=== PATIENT | female | born 1995 | race Caucasian/White ===

== ENCOUNTER 2016-05-07 16:55 | Emergency (ER) | payer BC ==
[~2016-05-07] VITALS: Ht 165.1 cm; Wt 46.0 kg
[2016-05-07 17:02] VITALS: Ht 165.1 cm; Wt 46.0 kg
[2016-05-07] MEDS ORDERED: HYDROCODONE/APAP (5/325) TAB PO ONE (22:30)
--- NOTE | 2016-05-07 22:36 | RADRPT ---
PROCEDURE: Left knee radiographs. CLINICAL INDICATION: Left knee pain. TECHNIQUE: Three views. Weight bearing. Frontal, lateral, and oblique. COMPARISON: No prior studies are available for comparison. FINDINGS: There is no fracture or dislocation. The soft tissues are normal. Articular surfaces are intact. There is no lytic or blastic lesion. There is no radiopaque foreign body. IMPRESSION: 1. Normal images of the left knee. RPTAT: QQ .Ino Garber MD, MD Date Time Electronically viewed and signed by .Ion Garber MD, on 05/07/2016 22:36 .R/
[2016-05-07] MEDS ORDERED: IBUP-1542 PO (22:40)
--- NOTE | 2016-05-07 22:47 | ERD ---
ER Documentation Chief Complaint Date/Time DATE: 05/07/16 TIME: 22:41 Chief Complaint LEFT KNEE PAIN X 4DAYS HPI Patient is a 21-year-old female who presents to the emergency department with left knee pain 4 days. Patient denies any trauma or falls. Patient states the pain is primarily in the anterior region of her knee. She describes the pain to be constant, 8 out of 10. Patient has pain when ambulating, states that it is difficult for her to walk more than 4 steps. Patient denies any swelling or erythema. Patient denies any previous injuries to the affected extremity. Patient denies any fever or chills. ROS All systems reviewed and are negative except as per history of present illness. Medications Home Meds Active Scripts Ibuprofen* (Motrin*) 600 Mg Tab, 600 MG PO Q6, #30 TAB Prov:JEWEL ALEXANDER PA-C 05/07/16 Allergies Allergies: Coded Allergies: No Known Allergy (Unverified , 05/07/16) PMhx/Soc Medical and Surgical Hx: pt denies Medical Hx, pt denies Surgical Hx History of Surgery: No Anesthesia Reaction: No Hx Neurological Disorder: No Hx Respiratory Disorders: No Hx Cardiac Disorders: No Hx Psychiatric Problems: No Hx Miscellaneous Medical Probl: No Hx Alcohol Use: No Hx Substance Use: No Hx Tobacco Use: No Smoking Status: Never smoker FmHx Family History: No diabetes Physical Exam Vitals Vital Signs Date Time Temp Pulse Resp B/P Pulse Ox O2 Delivery O2 Flow Rate FiO2 05/07/16 23:21 98.8 68 20 100 Room Air 05/07/16 17:02 99.0 113 18 118/72 98 Physical Exam GENERAL: Well-developed, well-nourished female. Appears in no acute distress. HEAD: Normocephalic, atraumatic. EYES: Pupils are equally reactive bilaterally. EOMs grossly intact. No conjunctival erythema. ENT: Moist mucous membranes. No uvula deviation. No kissing tonsils. NECK: Supple. No lymphadenopathy or thyromegaly. No meningismus. LUNG: Clear to auscultation bilaterally. No rhonchi, wheezing, rales or coarse breath sounds. HEART: Regular rate and rhythm. No murmurs, rubs or gallops. BACK: No midline tenderness. EXTREMITIES: Equal pulses bilaterally. No peripheral clubbing, cyanosis or edema. No unilateral leg swelling. NEUROLOGIC: Alert and oriented. Moving all four extremities without any difficulty. Normal speech. Steady gait. SKIN: Normal color. Warm and dry. No rashes or lesions. LEFT KNEE: No deformity, erythema, ecchymosis or swelling. Skin intact. Decreased range of motion secondary to pain. No crepitus. Tender to palpation to anterior and lateral aspect of knee. (-) Anterior drawer test. (-) Regulo test. No valgus/varus instability. Sensation intact to light touch. Neurovascularly intact. (Able to plantarflex, dorsiflex, jennifer foot, invert foot , raise big toe.) 2+ DP and DT pulses. Results 24 hrs Current Medications Medications (Trade) Dose Ordered Sig/Gilmer Route PRN Reason Start Time Stop Time Status Last Admin Dose Admin Acetaminophen/ Hydrocodone Bitart ([place] (5/325)) 1 tab ONCE ONCE PO 05/07/16 22:30 05/07/16 22:31 DC 05/07/16 22:17 Procedures/MDM ED COURSE: The patient was stable throughout ED course. I kept the patient and/or family informed of laboratory and diagnostic imaging results throughout the ED course. DIAGNOSTIC IMAGING: Read by radiologist. DIAGNOSTIC IMAGING REPORT Patient: JENNIFER LOAIZA : 1995 Age: 21 Sex: F MR #: [id number] DOS: 05/07/162203 Ordering MD: JEWEL ALEXANDER PA-C Location: [facility] Room/Bed: PROCEDURE: Left knee radiographs. CLINICAL INDICATION: Left knee pain. TECHNIQUE: Three views. Weight bearing. Frontal, lateral, and oblique. COMPARISON: No prior studies are available for comparison. FINDINGS: There is no fracture or dislocation. The soft tissues are normal. Articular surfaces are intact. There is no lytic or blastic lesion. There is no radiopaque foreign body. IMPRESSION: 1. Normal images of the left knee. RPTAT: QQ .Ino Garber MD, MD Date Time Electronically viewed and signed by .Ino Garber MD, MD on 05/07/2016 22:36 .R/ CC: JEWEL ALEXANDER PA-C SPLINT APPLICATION: The patient was verbally consented at bedside prior to splint application. Patient was explained the risks, benefits and alternatives to this procedure. The patient was neurovascularly intact prior to and status post application of the splint. The patient tolerated the procedure well with no complications. Splint type: knee immobilizer Extremity: LLE Indication: left knee sprain MEDICATIONS GIVEN: [place] Patient tolerated medication well with no adverse reactions. Patient reported improvement in pain. MEDICAL DECISION MAKING: This is a 21-year-old female who presents with left knee pain 4 days. Vital signs were reviewed. Patient was afebrile. Knee xrays showed Normal images of the left knee. She was given [place] for pain. Patient reported improvement in pain. Patient was given a knee immobilizer for comfort. Patient was neurovascularly intact pre and post-splint application. Given these findings, the patients presentation is most consistent with knee sprain. I have a much lower clinical concern for femur fracture, patella fracture, tibial plateau fracture, patella dislocation, septic joint, gout, popliteal cyst, prepatellar bursitis, patellofemoral syndrome, patellar tendinitis, osteomyelitis, DVT or compartment syndrome. At this time, unable to rule out any meniscus and knee ligament injuries. PRESCRIPTIONS: Ibuprofen DISCHARGE: At this time, patient is stable for discharge and outpatient management. RICE therapy and ROM exercises were advised to avoid stiffness. I have instructed the patient to follow-up with his/her primary care physician in 1-2 days. I have discussed with the patient the possibility of needing to see an family support specialist for further workup and imaging if the pain persists. I have instructed the patient to promptly return to the ER for any new or worsening symptoms including increased pain, swelling, redness, warmth or fever. The patient and/or family expressed understanding of and agreement with this plan. All questions were answered. Home care instructions were provided. Departure Diagnosis: Primary Impression: Knee pain Laterality: left Chronicity: acute Qualified Code: M25.562 - Acute pain of left knee Condition: Stable Patient Instructions: Knee Pain, Uncertain Cause Referrals: KRYSTAL WARREN MD (PCP) Additional Instructions: Call your primary care doctor TOMORROW for an appointment during the next 1-2 days.See the doctor sooner or return here if your condition worsens before your appointment time. Unable to rule out any ligamentous or tendon injuries at this time. Patient will need to see an family support specialist and/or obtain MRI imaging for further workup. Wear knee immobilizer until see by family support specialist. JEWEL ALEXANDER PA-C May 07, 2016 22:46
[2016-05-07 23:21] VITALS: PULSE 68; RESP 20; TEMP 98.8
== END 2016-05-07 23:12 | disposition home or self-care (01) ==
LOC: FTE 16:55
DX: M25.562 Pain in left knee (principal)
CPT/HCPCS: 29505; 73562; 99283; Z7610